=== PATIENT | male | born 1990 | race Two or more races ===

== ENCOUNTER 2019-01-28 17:22 | Outpatient (CLI) | payer OTHER ==
[2019-01-28 18:09] LABS: ALBUMIN/GLOBULIN RATIO 1.3 (1.0-2.2); BILIRUBIN,TOTAL 1.2 mg/dL (0.2-1.0); CALCIUM 9.5 mg/dL (8.5-10.3); CREATININE 0.8 mg/dL (0.6-1.2); TOTAL PROTEIN 7.1 g/dL (6.7-8.2)
[2019-01-28 19:44] LABS: BASOPHILS % (AUTO) 0.5 %; EOSINOPHILS # (AUTO) 0.5 10^3/uL (0.0-0.7); EOSINOPHILS % (AUTO) 10.4 %; HGB - HEMOGLOBIN 16.4 g/dL (14.0-18.0); LYMPHOCYTES # (AUTO) 1.6 10^3/uL (1.5-3.5); LYMPHOCYTES % (AUTO) 33.6 %; MEAN CORPUSCULAR HEMOGLOBIN 31.7 pg (27.0-31.0); MEAN CORPUSCULAR HGB CONC 34.8 g/dL (32.0-36.0); MEAN CORPUSCULAR VOLUME 91.1 fL (80.0-94.0); MEAN PLATELET VOLUME 8.3 fL (7.4-11.4); MONOCYTES # (AUTO) 0.6 10^3/uL (0.0-1.0); MONOCYTES % (AUTO) 11.8 %; NEUTROPHILS # (AUTO) 2.1 10^3/uL (1.5-6.6); NEUTROPHILS % (AUTO) 43.7 %; PLT - PLATELET COUNT 182 10^3/uL (130-450); RED BLOOD COUNT 5.17 10^6/uL (4.70-6.10); RED CELL DISTRIBUTION WIDTH 12.9 % (12.0-15.0); WHITE BLOOD COUNT 4.7 x10^3/uL (4.8-10.8)
[2019-01-29 12:27] LABS: HIV AG/AB 4TH GEN NON-REACTIVE (NON-REACTIVE)
[2019-01-29 14:18] LABS: HEPATITIS C ANTIBODY NON-REACTIVE (NON-REACTIVE)
[2019-01-30 11:18] LABS: HSV 1 IGG TYPE SPECIFIC AB 2.99 index; HSV 2 IGG TYPE SPECIFIC AB <0.90 index
== END 2019-01-28 17:23 | disposition home or self-care (01) ==
LOC: LAB 17:22
PROVIDERS: ATTEND Family Medicine
DX: R56.9 Unspecified convulsions (principal); Z11.3 Encounter for screening for infections with a predominantly sexual mode of transmission
CPT/HCPCS: 36415; 80053; 81599; 85025; 86592; 86695; 86696; 86803; 87389

== ENCOUNTER 2023-07-04 10:59 | Day surgery (SDC) | payer BC ==
[~2023-07-04 10:59] MED LIST: ceFAZolin 2 GM VIAL ONE
[2023-07-04] MEDS ORDERED: LACTATED RINGERS 1,000 ML IV ONE ×2 (11:16→15:44)
[2023-07-04] MEDS ORDERED: fentaNYL 100 MCG/2 ML VIAL IVP PRN (12:27)
[2023-07-04] MEDS ORDERED: HYDROmorphone 0.5 MG/0.5 ML SYRINGE IVP PRN (12:27)
[2023-07-04] MEDS ORDERED: ATROPINE ABBOJECT 1 MG/10 ML SYRINGE IVP PRN (12:27)
[2023-07-04] MEDS ORDERED: ONDANSETRON 4 MG/2 ML VIAL IVP PRN (12:27)
[2023-07-04] MEDS ORDERED: NALOXONE 0.4 MG/ML VIAL IVP PRN (12:27)
[2023-07-04] MEDS ORDERED: ePHEDrine 50 MG/ML VIAL IVP PRN (12:27)
--- NOTE | 2023-07-04 12:27 | ANESTHESIA ---
Pre-Anesthesia VS, & Labs - Diagnosis r inguinal hernia, l hip lipoma - Procedure right open inguinal hernia, left lipoma excision from hip Vital Signs: Temp Pulse Resp BP Pulse Ox O2 Flow Rate 36.3 C L 88 16 146/99 H 96 0 07/04/23 11:16 07/04/23 11:16 07/04/23 11:16 07/04/23 11:16 07/04/23 11:16 07/04/23 11:16 Height: 6 ft Weight (kg): 105.5 kg Body Mass Index: 31.5 BMI Classification: Obese - NPO >8 hours - Lab Results Lab results reviewed: Yes Home Medications and Allergies Home Medications: Ambulatory Orders lamoTRIgine [Lamictal] 200 mg PO BID 06/27/23 lamoTRIgine [Lamictal] 200 mg PO BID 06/27/23 Allergies/Adverse Reactions: Allergies Allergy/AdvReac Type Severity Reaction Status Date / Time No Known Drug Allergies Allergy Verified 07/04/23 11:23 Anes History & Medical History - Anesthetic History Anesthesia Complications: reports: No previous complications Family history of Anesthesia Complications: Denies Family history of Malignant Hyperthermia: Denies - Medical History Cardiovascular: reports: None Pulmonary: reports: None Gastrointestinal: reports: None Urinary: reports: None Neuro: reports: Seizure disorder Musculoskeletal: reports: None Endocrine/Autoimmune: reports: None Skin: reports: None Smoking Status: Never smoker Exam General: Alert, Oriented x3, Cooperative Dental: WNL Mouth Openin Fingerbreadth Neck Mobility: Normal Mallampati classification: II Thyromental Distance: 4-6 cm Respiratory: Lungs clear Cardiovascular: Regular rate Plan Anesthesia Type: General Consent for Procedure(s) Verified and Reviewed: Yes Code Status: Attempt Resuscitation ASA classification: 2-Mild systemic disease Is this case an emergency?: No
[2023-07-04] MEDS ORDERED: PROPOFOL 200 MG/20 ML VIAL IVP ONE ×2 (12:59→13:52)
[2023-07-04] MEDS ORDERED: fentaNYL 100 MCG/2 ML VIAL ONE (12:59)
[2023-07-04] MEDS ORDERED: MIDAZOLAM 2 MG/2 ML VIAL ONE (12:59)
[2023-07-04] MEDS ORDERED: LACTATED RINGERS 1,000 ML IV SCH (13:00)
[2023-07-04] MEDS ORDERED: BUPIVACAINE 0.25% PF 30 ML VIAL ONE ×2 (13:03→14:14)
--- NOTE | 2023-07-04 13:31 | HISTORY & PHYSICAL EXAMINATION ---
Chief Complaint - Chief Complaint Chief Complaint: here for rih repair and excision left hip area lipoma History of Present Illness - History Obtained From Records Reviewed: yes History obtained from: pt Exam Limitations: none - History of Present Illness HPI Comment/Other: symptomatic right inguinal hernia and growing and now painful left hip lipoma History - Past Medical History Cardiovascular: reports: None Respiratory: reports: None Neuro: reports: Seizure disorder Endocrine/Autoimmune: reports: None GI: reports: None : reports: None HEENT: reports: Chronic vision loss Psych: reports: None Musculoskeletal: reports: None Derm: reports: None MRSA Hx?: No Meds/Allgy - Home Medications Home Medications: Ambulatory Orders Medication Instructions Recorded Confirmed lamoTRIgine [Lamictal] 200 mg PO BID 06/27/23 06/27/23 - Allergies Allergies/Adverse Reactions: Allergies Allergy/AdvReac Type Severity Reaction Status Date / Time No Known Drug Allergies Allergy Verified 07/04/23 11:23 Review of Systems - Other Findings Other Findings: 10 pt ros as above otherwise unremarkable Exam - Vital Signs Reviewed Vital Signs: Yes Vital Signs: Vital Signs x48h Temp Pulse Resp BP Pulse Ox O2 Flow Rate 07/04/23 11:16 36.3 C L 88 16 146/99 H 96 0 - Physical Exam General Appearance: positive: No acute distress, Alert Eyes Bilateral: positive: PERRL, EOMI, No scleral icterus ENT: positive: No signs of dehydration Neck: positive: No JVD, Trachea midline Respiratory: positive: Breath sounds nml Cardiovascular: positive: Regular rate & rhythm Abdomen: positive: Non-tender, No distention, Other (right inguinal hernia and left hip 6 cm lipoma) Neurologic/Psychiatric: positive: Oriented x3 Conclusion/Plan - Problem List (1) Inguinal hernia, right Conclusion/Plan: plan open right inguinal hernia repair and excision left hip lipoma parq held and consent obtained - Lab Results Lab results reviewed: Yes
[2023-07-04] MEDS ORDERED: DEXAMETHASONE 4 MG/ML VIAL ONE (13:59)
[2023-07-04] MEDS ORDERED: BUPIVACAINE 0.25% PF 30 ML VIAL SUBQ ONE ×2 (14:20)
[2023-07-04] MEDS ORDERED: HYDROmorphone 1 MG/ML CARPUJECT ONE (14:22)
[2023-07-04] MEDS ORDERED: ONDANSETRON 4 MG/2 ML VIAL ONE (15:21)
[2023-07-04] MEDS ORDERED: HYDROcod/ACETAM 5/325 MG TABLET PO PRN (16:10)
--- NOTE | 2023-07-04 16:18 | OPERATIVE REPORT ---
Operative Report - General Procedure Date: 07/04/23 Planned Procedure: open right inguinal hernia repair and excision left hip lipoma Pre-Op Diagnosis: right inguinal hernia and left hip lipoma Procedure Performed: open repair right inguinal hernia excision left hip 5 cm subcutaneous lipoma and 4 cm intermediate repair Post Op Diagnosis: indirect and direct inguinal hernia. lipoma left hip - Procedure Note Primary Surgeon: homa yen Anesthesia Technique: General LMA, Local Pathology: benign tissue. not sent Estimated Blood Loss (mL): 2 Drain/Tube Type: Other (none) Indications: painful hernia and growing and tender lipoma left hip Findings: as above Complications: none - Other Other Information/Narrative: Patient was properly identified brought to the operating room and placed in supine position. Sequential compression devices were placed. General endotracheal anesthesia was induced. He was prepped and draped in a sterile fashion and given preoperative antibiotics. Local anesthetic was given throughout the procedure. A 5 cm incision was made in the direction of Salena's lines just cephalad of the pubic tubercle. Dissection proceeded with cutting current cautery. The superficial epigastric vein was identified clamped divided and tied with 3-0 Vicryl. Dissection proceeded down to the aponeurosis. The aponeurosis was opened in the direction of its fibers and extended to the external ring. Cord structures were mobilized and brought up. The nerves were carefully protected and preserved. Cord structures were mobilized and brought up. A large direct hernia was identified. The direct bulge was mobilized away from surrounding structures. It was reduced and floor repaired with a 2-0 silk pursestring suture. There was no indirect inguinal hernia. Preperitoneal fat was removed. The base was tied with 2 O vicryl. Polypropylene mesh was cut to size and with tails. The mesh was secured with multiple interrupted 0 Ethibond sutures. She was placed along the pubic tubercle, Tyler's ligament area and along the shelving border of Poupart's ligament. Sutures were placed medially along the abdominal wall musculature and internal oblique. The medial tail of the mesh was secured to the shelving border of Poupart's ligament with 3 interrupted 0 ethibond sutures recreating the internal ring of appropriate size. An additional suture was placed in the crotch of the mesh recreating an internal ring of appropriate size. Aponeurosis was closed with a running 2-0 Vicryl suture. The opposite was closed with interrupted 3-0 Vicryl suture. Buried interrupted subdermal 3-0 Vicryl sutures were then placed. And was closed with a running 4-0 Monocryl subcuticular suture. Dressing was applied. The left hip lipoma was then addressed. An elliptical incision was made in the direction of Salena's lines measuring approximately 4 cm. A 5 cm subcutaneous lipoma was removed without difficulty. Hemostasis was achieved with cautery. Intermediate repair was then performed. Subcutaneous tissue was closed with interrupted 2-0 Vicryl suture. Buried interrupted subdermal 3-0 Vicryl sutures were then placed. Skin was closed with a running 4-0 Monocryl subcuticular suture. Dressing was applied. Patient was awakened and brought to recovery in good condition.
[2023-07-04 16:55] VITALS: BP 139/97; O2SAT 95
== END 2023-07-04 11:00 | disposition home or self-care (01) ==
LOC: SDS 10:59
PROVIDERS: ATTEND Surgery
DX: K40.90 Unilateral inguinal hernia, without obstruction or gangrene, not specified as recurrent (principal); D17.24 Benign lipomatous neoplasm of skin and subcutaneous tissue of left leg; G40.909 Epilepsy, unspecified, not intractable, without status epilepticus; E66.9 Obesity, unspecified; Z68.31 Body mass index [BMI] 31.0-31.9, adult
CPT/HCPCS: 11406; 12032; 49505; C1781; J1170; J7120